=== PATIENT | male | born 1985 | race Caucasian/White ===

== ENCOUNTER 2018-09-28 01:39 | Emergency (ER) | payer MEDICAID ==
[~2018-09-28] VITALS: Ht 175.3 cm; Wt 76.5 kg
[~2018-09-28 01:39] MED LIST: NO HOME MEDS; ZIPR20CA2 PO
[2018-09-28] MEDS ORDERED: rifampin 300mg capsule PO ONE (03:05)
[2018-09-28] MEDS ORDERED: LIDOcaine 1.5% w/epinephrine 1:200,000 5ml ampul IJ ONE (03:05)
[2018-09-28] MEDS ORDERED: sulfamethoxazole/trimethoprim DS (800/160mg) tablet PO ONE (03:05)
[2018-09-28] MEDS ORDERED: HYDROcodone/acetaminophen 10/325mg tab PO ONE (03:05)
[2018-09-28] MEDS ORDERED: TETanus/Pertussis (Acell)/Diphther VAC/PF (Tdap-Adult) 0.5ml syringe IM ONE (03:05)
[2018-09-28] MEDS ORDERED: LIDOcaine 1% w/epiNEPHrine 1:200,000 30ml vial IJ ONE (03:10)
[2018-09-28 03:28] VITALS: BP 125/80
[2018-09-28] MEDS ORDERED: SULF1TAB48 PO (05:05)
[2018-09-28] MEDS ORDERED: HYDR-4353 PO (05:05)
== END 2018-09-28 05:22 | disposition home or self-care (01) ==
LOC: ER 01:39
DX: T63.301A Toxic effect of unspecified spider venom, accidental (unintentional), initial encounter (principal); L02.416 Cutaneous abscess of left lower limb; L03.116 Cellulitis of left lower limb; F15.10 Other stimulant abuse, uncomplicated; F12.90 Cannabis use, unspecified, uncomplicated; F17.200 Nicotine dependence, unspecified, uncomplicated; Z79.899 Other long term (current) drug therapy; Y92.89 Other specified places as the place of occurrence of the external cause
CPT/HCPCS: 10060; 90471; 90715; 99284; J3490

== ENCOUNTER 2019-03-16 19:28 | Emergency (ER) | payer MEDICAID ==
[~2019-03-16] VITALS: Ht 175.3 cm; Wt 77.4 kg
[2019-03-16 19:45] VITALS: BP 156/79
--- NOTE | 2019-03-16 19:54 | NUR ---
TENDERNESS TO TOUCH OVER RIBS ON LEFT, NO DEFORMITY NOTED
[2019-03-16] MEDS ORDERED: HYDROcodone/acetaminophen 10/325mg tab PO ONE (20:35)
[2019-03-16] MEDS ORDERED: HYDR-4383 PO (20:41)
== END 2019-03-16 21:31 | disposition home or self-care (01) ==
LOC: ER 19:29
DX: S52.122A Displaced fracture of head of left radius, initial encounter for closed fracture (principal); S20.212A Contusion of left front wall of thorax, initial encounter; F17.200 Nicotine dependence, unspecified, uncomplicated; F12.90 Cannabis use, unspecified, uncomplicated; Z98.890 Other specified postprocedural states; Z79.899 Other long term (current) drug therapy; V00.131A Fall from skateboard, initial encounter; Y93.51 Activity, roller skating (inline) and skateboarding; Y92.89 Other specified places as the place of occurrence of the external cause; Y99.8 Other external cause status
CPT/HCPCS: 29105; 73080; 73110; 99284

== ENCOUNTER 2019-05-22 11:59 | Emergency (ER) | payer MEDICAID ==
[~2019-05-22] VITALS: Ht 177.8 cm; Wt 84.1 kg
[~2019-05-22 11:59] MED LIST changes: +HYDR-4383 PO; -NO HOME MEDS; -ZIPR20CA2 PO
[2019-05-22 12:05] VITALS: BP 133/88
[2019-05-22] MEDS ORDERED: ondansetron 4mg rapidly disintigrating tab PO ONE (12:50)
[2019-05-22] MEDS ORDERED: HYDROcodone/acetaminophen 5mg/325mg tablet PO ONE (12:50)
[2019-05-22] MEDS ORDERED: TRAM50TA2 PO (14:13)
== END 2019-05-22 15:13 | disposition home or self-care (01) ==
LOC: ER 12:00
DX: S62.111A Displaced fracture of triquetrum [cuneiform] bone, right wrist, initial encounter for closed fracture (principal); S52.122A Displaced fracture of head of left radius, initial encounter for closed fracture; S50.01XA Contusion of right elbow, initial encounter; S70.01XA Contusion of right hip, initial encounter; S80.01XA Contusion of right knee, initial encounter; S00.81XA Abrasion of other part of head, initial encounter; M25.522 Pain in left elbow; F31.9 Bipolar disorder, unspecified; F20.9 Schizophrenia, unspecified; F17.200 Nicotine dependence, unspecified, uncomplicated; F12.90 Cannabis use, unspecified, uncomplicated; F15.90 Other stimulant use, unspecified, uncomplicated; Z98.890 Other specified postprocedural states; Z79.899 Other long term (current) drug therapy; W17.89XA Other fall from one level to another, initial encounter; Y93.89 Activity, other specified; Y92.89 Other specified places as the place of occurrence of the external cause; Y99.8 Other external cause status
CPT/HCPCS: 29125; 73080; 73110; 73502; 73564; 99284; J2405

== ENCOUNTER 2019-05-31 07:07 | Emergency (ER) | payer MEDICAID ==
[~2019-05-31] VITALS: Ht 175.3 cm; Wt 68.0 kg
--- NOTE | 2019-05-31 07:21 | NUR ---
PT OBSERVED BY NURSE AMBULATING SELF FROM TRIAGE TO ER #7 WITHOUT DIFFICULTY.
[2019-05-31] MEDS ORDERED: sulfamethoxazole/trimethoprim DS (800/160mg) tablet PO ONE (07:30)
[2019-05-31] MEDS ORDERED: ibuprofen tablet 400 MG TABLET PO ONE (07:30)
[2019-05-31] MEDS ORDERED: SULF1TAB49 PO (09:15)
[2019-05-31] MEDS ORDERED: IBUP-1986 PO (09:15)
[2019-05-31 09:32] VITALS: BP 128/78
== END 2019-05-31 09:33 | disposition home or self-care (01) ==
LOC: ER 07:08
DX: S10.96XA Insect bite of unspecified part of neck, initial encounter (principal); S70.01XA Contusion of right hip, initial encounter; L02.11 Cutaneous abscess of neck; F31.9 Bipolar disorder, unspecified; F20.9 Schizophrenia, unspecified; F17.200 Nicotine dependence, unspecified, uncomplicated; F12.90 Cannabis use, unspecified, uncomplicated; F15.90 Other stimulant use, unspecified, uncomplicated; Z98.890 Other specified postprocedural states; Z79.2 Long term (current) use of antibiotics; Z79.899 Other long term (current) drug therapy; V00.131A Fall from skateboard, initial encounter; W57.XXXA Bitten or stung by nonvenomous insect and other nonvenomous arthropods, initial encounter; Y93.89 Activity, other specified; Y92.89 Other specified places as the place of occurrence of the external cause; Y99.8 Other external cause status
CPT/HCPCS: 72170; 99283

== ENCOUNTER 2019-08-24 06:53 | Emergency (ER) | payer MEDICAID ==
[~2019-08-24] VITALS: Ht 175.3 cm; Wt 76.0 kg
[~2019-08-24 06:53] MED LIST changes: +IBUP-1986 PO
[2019-08-24 06:55] VITALS: BP 122/84
[2019-08-24] MEDS ORDERED: LIDOcaine 1% w/EPI 1:200,000 injection 10mL vial IM ONE (07:20)
[2019-08-24] MEDS ORDERED: LIDOcaine 1% W/epiNEPHrine 1:200,000 10ml vial IJ ONE (07:30)
[2019-08-24] MEDS ORDERED: CEPH500C5 PO (07:46)
[2019-08-24] MEDS ORDERED: SULF1TAB49 PO (07:46)
== END 2019-08-24 08:10 | disposition home or self-care (01) ==
LOC: ER 06:54
DX: L02.413 Cutaneous abscess of right upper limb (principal); F31.9 Bipolar disorder, unspecified; F20.9 Schizophrenia, unspecified; F12.90 Cannabis use, unspecified, uncomplicated; F15.90 Other stimulant use, unspecified, uncomplicated; Z98.890 Other specified postprocedural states; Z79.2 Long term (current) use of antibiotics; Z79.899 Other long term (current) drug therapy
CPT/HCPCS: 10060; 99283

== ENCOUNTER 2019-10-30 13:42 | Emergency (ER) | payer MEDICAID ==
[~2019-10-30] VITALS: Ht 175.3 cm; Wt 76.9 kg
[2019-10-30] MEDS ORDERED: ibuprofen 200mg tablet PO ONE (14:05)
[2019-10-30 15:05] VITALS: BP 116/68
[2019-10-30] MEDS ORDERED: TAM75C PO (15:36)
[2019-10-30] MEDS ORDERED: IBUP-1984 PO (15:36)
[2019-10-30] MEDS ORDERED: BACDS PO (15:39)
== END 2019-10-30 15:58 | disposition home or self-care (01) ==
LOC: ER 13:42
DX: J11.1 Influenza due to unidentified influenza virus with other respiratory manifestations (principal); F12.90 Cannabis use, unspecified, uncomplicated; F15.90 Other stimulant use, unspecified, uncomplicated; F17.200 Nicotine dependence, unspecified, uncomplicated; Z98.890 Other specified postprocedural states
CPT/HCPCS: 99283

== ENCOUNTER 2019-11-27 23:42 | Emergency (ER) | payer MEDICAID ==
[~2019-11-27] VITALS: Ht 175.3 cm; Wt 86.4 kg
[2019-11-27 23:50] VITALS: BP 151/91
[2019-11-28] MEDS ORDERED: DOXY100C2 PO (15:01)
== END 2019-11-28 01:42 | disposition left against medical advice (07) ==
LOC: ER 23:43
DX: S61.215A Laceration without foreign body of left ring finger without damage to nail, initial encounter (principal); Z53.21 Procedure and treatment not carried out due to patient leaving prior to being seen by health care provider; W26.0XXA Contact with knife, initial encounter; Y93.89 Activity, other specified; Y92.89 Other specified places as the place of occurrence of the external cause; Y99.9 Unspecified external cause status

== ENCOUNTER 2019-11-28 13:39 | Emergency (ER) | payer MEDICAID ==
[~2019-11-28] VITALS: Ht 177.8 cm; Wt 77.0 kg
[~2019-11-28 13:39] MED LIST changes: +LIDOcaine 1% W/epiNEPHrine 1:100,000 20ml vial ONE
[2019-11-28 13:41] VITALS: BP 136/88
--- NOTE | 2019-11-28 14:06 | NUR ---
Pt's finger was bleeding consistently. Pt refused to hold pressure on area. Wrapped laceration with 4x4 & coband.
[2019-11-28] MEDS ORDERED: TETanus/Pertussis (Acell)/Diphther VAC/PF (Tdap-Adult) 0.5ml syringe IMVAC ONE (14:35)
[2019-11-28] MEDS ORDERED: HYDROcodone/acetaminophen 5mg/325mg tablet PO ONE (14:35)
[2019-11-28] MEDS ORDERED: DOXY100C2 PO (15:01)
== END 2019-11-28 15:28 | disposition home or self-care (01) ==
LOC: ER 13:40
DX: S61.215A Laceration without foreign body of left ring finger without damage to nail, initial encounter (principal); F12.90 Cannabis use, unspecified, uncomplicated; F15.90 Other stimulant use, unspecified, uncomplicated; F17.200 Nicotine dependence, unspecified, uncomplicated; Z98.890 Other specified postprocedural states; W26.0XXA Contact with knife, initial encounter; Y93.89 Activity, other specified; Y92.89 Other specified places as the place of occurrence of the external cause; Y99.9 Unspecified external cause status
CPT/HCPCS: 12001; 90715; 99283

== ENCOUNTER 2019-12-28 09:47 | Emergency (ER) | payer MEDICAID ==
[~2019-12-28] VITALS: Ht 175.3 cm; Wt 77.3 kg
[~2019-12-28 09:47] MED LIST changes: -LIDOcaine 1% W/epiNEPHrine 1:100,000 20ml vial ONE
[2019-12-28 09:54] VITALS: BP 142/97
== END 2019-12-28 10:44 | disposition home or self-care (01) ==
LOC: ER 09:48
DX: F15.10 Other stimulant abuse, uncomplicated (principal); F31.9 Bipolar disorder, unspecified; F20.9 Schizophrenia, unspecified; F12.90 Cannabis use, unspecified, uncomplicated; Z98.890 Other specified postprocedural states; Z79.899 Other long term (current) drug therapy
CPT/HCPCS: 99281

== ENCOUNTER 2023-04-02 21:27 | Emergency (ER) | payer MEDICAID ==
[~2023-04-02] VITALS: Ht 175.3 cm; Wt 84.1 kg
[2023-04-02 21:59] LABS: CLARITY,URINE SLIGHTLY CLOUDY (Clear); COLOR,URINE YELLOW (Yellow); GLUCOSE, URINE NEGATIVE (Neg); KETONES,URINE NEGATIVE (Neg); LEUKOCYTE ESTERASE ,URINE SMALL (Neg); NITRITES, URINE NEGATIVE (Neg); OCCULT BLOOD,URINE NEGATIVE (Neg); PROTEIN,URINE NEGATIVE (Neg); UROBILINOGEN,URINE 0.2 E.U/dL (0.2-1.0)
[2023-04-02 22:00] LABS: EOSINOPHILS # (AUTO) 0.1 X10'3 (0-0.9); MEAN PLATELET VOLUME 7.9 FL (7.4-10.4)
[2023-04-02 22:02] LABS: BASOPHILS # (AUTO) 0.1 X10'3 (0-0.2); BASOPHILS % (AUTO) 0.5 % (0-1); EOSINOPHILS % (AUTO) 0.4 % (0-6); HEMATOCRIT 36.2 % (42.0-52.0); HEMOGLOBIN 11.4 g/dl (14.0-17.9); LYMPHOCYTES # (AUTO) 1.2 X10'3 (1.1-4.8); LYMPHOCYTES % (AUTO) 7.3 % (21-51); MEAN CORPUSCULAR HEMOGLOBIN 26.3 PG (27.0-31.0); MEAN CORPUSCULAR HGB CONC 31.6 g/dL (33.0-36.5); MEAN CORPUSCULAR VOLUME 83.1 FL (78-98); MONOCYTES # (AUTO) 0.9 X10'3 (0-0.9); MONOCYTES % (AUTO) 5.3 % (2-12); NEUTROPHILS # (AUTO) 14.5 X10'3 (1.8-7.7); NEUTROPHILS % (AUTO) 86.5 % (42-75); PLATELET COUNT 313 X10'3 (140-440); RED BLOOD COUNT 4.36 X10'6 (4.70-6.10); RED CELL DISTRIBUTION WIDTH 15.8 % (11.5-14.5); WHITE BLOOD COUNT 16.7 X10'3 (4.5-11.0)
[2023-04-02 22:02] LABS: UA COLLECTION TYPE CLN CATCH MIDSTREAM
[2023-04-02 22:08] LABS: BACTERIA,URINE FEW /HPF (Neg); SQUAMOUS EPITHELIAL CELL,UR FEW /LPF (FEW); WBC,URINE 20-30 /HPF (0-4)
[2023-04-02 22:09] LABS: WBC CLUMPS,URINE FEW /HPF (NEGATIVE)
[2023-04-02 22:14] LABS: ALANINE AMINOTRANSFERASE 26 U/L (12-78); ALBUMIN/GLOBULIN RATIO 0.9 (1.1-1.5); ALKALINE PHOSPHATASE 113 IU/L (46-116); ANION GAP 10 (8-16); ASPARTATE AMINO TRANSFERASE 18 U/L (10-37); BILIRUBIN,TOTAL 0.9 MG/DL (0.1-1.0); BLOOD UREA NITROGEN 8 MG/DL (7-18); BUN/CREATININE RATIO 7.6 (10.0-20.0); CALCIUM 9.1 MG/DL (8.5-10.1); CHLORIDE 102 MMOL/L (99-107); CREATININE 1.05 MG/DL (0.60-1.10); GLUCOSE 109 MG/DL (70-104); POTASSIUM 3.4 MMOL/L (3.5-5.1); SODIUM 137 MMOL/L (135-145); TOTAL PROTEIN 8.4 G/DL (6.4-8.2); eGFR 80 ML/MIN
[2023-04-03] MEDS ORDERED: acetaminophen 325mg tablet PO ONE (01:45)
[2023-04-03] MEDS ORDERED: CefTRIAXone/D5W-Rocephin 1gm 50 ML IV ONE (01:45)
[2023-04-03] MEDS ORDERED: ibuprofen tablet 400 MG TABLET PO ONE (01:45)
[2023-04-03] MEDS ORDERED: CLINDAMYCIN 600mg IN NS 50ML 50 ML IV ONE (01:45)
[2023-04-03] MEDS ORDERED: iohexol 300mg/ml 100ml inj. ONE (01:59)
[2023-04-03 02:35] VITALS: BP 114/69
[2023-04-03] MEDS ORDERED: CLIN300C71 PO (03:14)
== END 2023-04-03 03:29 | disposition home or self-care (01) ==
LOC: ER 21:28
DX: L03.115 Cellulitis of right lower limb (principal); F31.9 Bipolar disorder, unspecified; F12.90 Cannabis use, unspecified, uncomplicated; F15.20 Other stimulant dependence, uncomplicated
CPT/HCPCS: 71045; 73701; 80053; 81001; 83605; 84145; 85025; 87040; 87088; 96365; 96366; 96368; 99285; J0696; J3490; Q9967

== ENCOUNTER 2023-09-27 19:57 | Emergency (ER) | payer MEDICAID ==
[~2023-09-27] VITALS: Ht 175.3 cm; Wt 93.2 kg
[2023-09-27 20:02] VITALS: BP 143/98; PULSE 104; RESP 16; TEMP 100.3; O2SAT 98
--- NOTE | 2023-09-27 22:09 | NUR ---
PT AND VISITOR EDUCATED THAT PT NEEDS TO NOT EAT UNTIL APPROVED BY MD. PTS VISITOR PROCEEDED TO GIVE THE PT FOOD DESPITE BEING TOLD NOT TO. [employer] P[employer]DER NOTIFIED.
--- NOTE | 2023-09-27 22:36 | NUR ---
PTS VISITOR HAS BEEN NOTIFIED THAT SHE IS NO LONGER ABLE TO BE IN THE PTS ROOM DUE TO HER NON COMPLIANCE. PT BEGAN TO ARGUE WITH PRIMARY NURSE. SECURITY IS ON STANDBY AT ER ROOM 9 TO ESCORT THE VISITOR OUT.
--- NOTE | 2023-09-27 22:42 | NUR ---
[facility] HAS BEEN NOTIFIED. PT WISHES TO LEAVE AMA BUT IS REFUSING TO ALLOW US TO TAKE OUT HIS IV. SECURITY IS PRESENT AT BEDSIDE BUT PT REMAINS UPCOOPERATIVE WITH REQUEST TO REMOVE THE IV
== END 2023-09-27 23:07 | disposition left against medical advice (07) ==
LOC: ER 19:57
DX: G89.18 Other acute postprocedural pain (principal); M79.672 Pain in left foot; F31.9 Bipolar disorder, unspecified; F20.9 Schizophrenia, unspecified; F12.10 Cannabis abuse, uncomplicated; F15.10 Other stimulant abuse, uncomplicated
CPT/HCPCS: 99284

== ENCOUNTER 2023-11-15 02:11 | Inpatient (IN) | payer MEDICAID ==
[~2023-11-15] VITALS: Ht 175.3 cm; Wt 86.4 kg
[2023-11-15] MEDS ORDERED: acetaminophen 325mg tablet PO ONE (02:25)
[2023-11-15] MEDS ORDERED: normal saline 1000ML IV soln IVB ONE (02:30)
[2023-11-15] MEDS ORDERED: VANCOmycin 1250MG/NS 250ml Bag 250 ML IV ONE (02:40)
[2023-11-15] MEDS ORDERED: piperacillin/tazo 3.375gm/50ml 50 ML IV ONE (02:40)
[2023-11-15 02:59] LABS: BASOPHILS % (AUTO) 0.2 % (0-1); EOSINOPHILS % (AUTO) 0 % (0-6); HEMOGLOBIN 11.1 g/dl (14.0-17.9); LYMPHOCYTES # (AUTO) 0.7 X10'3 (1.1-4.8); LYMPHOCYTES % (AUTO) 3.9 % (21-51); MEAN CORPUSCULAR HEMOGLOBIN 24.8 PG (27.0-31.0); MEAN CORPUSCULAR HGB CONC 31.8 g/dL (33.0-36.5); MEAN CORPUSCULAR VOLUME 77.8 FL (78-98); MEAN PLATELET VOLUME 8.1 FL (7.4-10.4); MONOCYTES # (AUTO) 1.9 X10'3 (0-0.9); MONOCYTES % (AUTO) 11.2 % (2-12); NEUTROPHILS # (AUTO) 14.7 X10'3 (1.8-7.7); NEUTROPHILS % (AUTO) 84.7 % (42-75); PLATELET COUNT 252 X10'3 (140-440); RED CELL DISTRIBUTION WIDTH 16.8 % (11.5-14.5); WHITE BLOOD COUNT 17.4 X10'3 (4.5-11.0)
[2023-11-15 03:28] LABS: BILIRUBIN,URINE SMALL (Neg); CLARITY,URINE SLIGHTLY CLOUDY (Clear); COLOR,URINE YELLOW (Yellow); GLUCOSE, URINE NEGATIVE (Neg); KETONES,URINE NEGATIVE (Neg); LEUKOCYTE ESTERASE ,URINE NEGATIVE (Neg); NITRITES, URINE NEGATIVE (Neg); OCCULT BLOOD,URINE NEGATIVE (Neg); PROTEIN,URINE 100 mg/dl (Neg); UROBILINOGEN,URINE 0.2 E.U/dL (0.2-1.0)
[2023-11-15 03:37] LABS: ALANINE AMINOTRANSFERASE 44 U/L (12-78); ALBUMIN 3.4 G/DL (3.4-5.0); ALBUMIN/GLOBULIN RATIO 0.7 (1.1-1.5); ALKALINE PHOSPHATASE 107 IU/L (46-116); ANION GAP 10 (8-16); ASPARTATE AMINO TRANSFERASE 20 U/L (10-37); BILIRUBIN,TOTAL 1.1 MG/DL (0.1-1.0); BLOOD UREA NITROGEN 14 MG/DL (7-18); BUN/CREATININE RATIO 12.6 (10.0-20.0); CALCIUM 8.9 MG/DL (8.5-10.1); CHLORIDE 95 MMOL/L (99-107); CREATININE 1.11 MG/DL (0.60-1.10); GLUCOSE 149 MG/DL (70-104); POTASSIUM 3.4 MMOL/L (3.5-5.1); SODIUM 129 MMOL/L (135-145); TOTAL CARBON DIOXIDE 24.4 MMOL/L (24-32); TOTAL PROTEIN 8.4 G/DL (6.4-8.2); eCRCL 92 ML/MIN; eGFR 75 ML/MIN
[2023-11-15 03:42] LABS: UA COLLECTION TYPE CLN CATCH MIDSTREAM
[2023-11-15 03:43] LABS: MUCUS STRANDS MANY /LPF (Neg); SQUAMOUS EPITHELIAL CELL,UR NONE SEEN /LPF (FEW)
[2023-11-15 03:44] LABS: RBC,URINE NONE SEEN /HPF (0-2); WBC,URINE 0-4 /HPF (0-4)
[2023-11-15 03:45] LABS: AMORPHOUS URATES 2+; BACTERIA,URINE 1+ /HPF (Neg)
[2023-11-15 04:12] LABS: URINE AMPHETAMINE SCREEN POSITIVE (Neg); URINE BARBITUATE SCREEN NEGATIVE (Neg); URINE BENZODIAZEPINES SCREEN NEGATIVE (Neg); URINE CANNABINOID SCREEN POSITIVE (Neg); URINE COCAINE SCREEN NEGATIVE (Neg); URINE METHADONE SCREEN NEGATIVE (Neg); URINE OPIATE SCREEN NEGATIVE (Neg); URINE PHENCYCLIDINE SCREEN NEGATIVE (Neg)
[2023-11-15] MEDS ORDERED: ondansetron/PF 4mg/2ml inj IV PRN (04:35)
[2023-11-15] MEDS ORDERED: HYDROcodone/acetaminophen 5mg/325mg tablet PO PRN (04:35)
[2023-11-15] MEDS ORDERED: potassium Cl 20 mEq SR tablet PO PRN ×2 (04:35)
[2023-11-15] MEDS ORDERED: mag hydrox/Alum hydrox/simeth 30ml oral suspension PO PRN (04:35)
[2023-11-15] MEDS ORDERED: acetaminophen 325mg tablet PO PRN (04:35)
[2023-11-15] MEDS ORDERED: magnesium 2GM in 50ml NS 50 ML IV PRN (04:35)
[2023-11-15] MEDS ORDERED: magnesium 4gm in 100ml NS 100 ML IV PRN (04:35)
[2023-11-15] MEDS ORDERED: potassium Cl 40MEQ/1/2NS 520ml 520 ML IV PRN (04:35)
[2023-11-15] MEDS ORDERED: HYDROcodone/acetaminophen 10/325mg tab PO PRN (04:35)
[2023-11-15] MEDS ORDERED: morphine 2 MG/ML inj. syringe IV PRN ×2 (04:35)
[2023-11-15] MEDS ORDERED: magnesium hydroxide 30ml (MOM) UD suspension PO PRN (04:35)
[2023-11-15] MEDS ORDERED: normal saline 1000ml 1,000 ML IVB ONE (04:40)
[2023-11-15] MEDS ORDERED: normal saline 1000ml 1,000 ML IV SCH (04:40)
[2023-11-15 06:59] VITALS: PULSE 99; O2SAT 99
[2023-11-15 07:13] VITALS: TEMP 98.4
[2023-11-15] MEDS ORDERED: docusate sod 100mg capsule PO SCH (08:00)
[2023-11-15] MEDS ORDERED: K and/or MAG REPLACEMENT MC SCH (08:00)
[2023-11-15] MEDS ORDERED: heparin, porcine 5000 units/ml vial SQ SCH (08:00)
[2023-11-15 08:31] VITALS: RESP 18
[2023-11-15 08:54] LABS: POTASSIUM 2.9 MMOL/L (3.5-5.1)
[2023-11-15 09:05] LABS: % IRON SATURATION 2 % (11-46); IRON 5 UG/DL (53-167); TOTAL IRON BINDING CAPACITY 264 UG/DL (259-388)
[2023-11-15 09:36] VITALS: BP 116/80
[2023-11-15] MEDS ORDERED: piperacillin/tazo 4.5gm/100ml 100 ML IV SCH (11:00)
[2023-11-15] MEDS ORDERED: VANCOmycin 1250MG/NS 250ml Bag 250 ML IV SCH (15:00)
[2023-11-15] MEDS ORDERED: temazepam 15mg capsule PO PRN (21:00)
[2023-11-16] MEDS ORDERED: VANCOMYCIN LEVEL IV ONE (14:30)
== END 2023-11-15 11:25 | disposition left against medical advice (07) | DRG 720 ==
LOC: ER 02:12 → ED HOLD 04:39
PROVIDERS: ADMIT Internal Medicine; ATTEND Family Medicine
DX: A41.9 Sepsis, unspecified organism (principal); N17.9 Acute kidney failure, unspecified; E87.1 Hypo-osmolality and hyponatremia; E87.6 Hypokalemia; M86.661 Other chronic osteomyelitis, right tibia and fibula; D50.9 Iron deficiency anemia, unspecified; F20.9 Schizophrenia, unspecified; F31.9 Bipolar disorder, unspecified; Z53.29 Procedure and treatment not carried out because of patient's decision for other reasons; L03.115 Cellulitis of right lower limb; T81.31XA Disruption of external operation (surgical) wound, not elsewhere classified, initial encounter; Y83.8 Other surgical procedures as the cause of abnormal reaction of the patient, or of later complication, without mention of misadventure at the time of the procedure; Y92.89 Other specified places as the place of occurrence of the external cause; Z91.199 Patient's noncompliance with other medical treatment and regimen due to unspecified reason
CPT/HCPCS: 36415; 71045; 73590; 73700; 80053; 80305; 81001; 83540; 83550; 83605; 83735; 84132; 84145; 85025; 87040; 87070; 87075; 87077; 87186; 99285; G0378; J1644; J2543; J3370; J7030